=== PATIENT | female | born 1960 | race Caucasian/White ===

== ENCOUNTER 2019-03-22 14:38 | Emergency (ER) | payer OTHER ==
[2019-03-22 16:03] LABS: URINE BLOOD (Dip) POC 1+ (NEGATIVE); URINE GLUCOSE (Dip) POC Negative (NEGATIVE); URINE KETONES (Dip) POC Negative (NEGATIVE); URINE LEUKOCYTE EST (Dip) POC 2+ (NEGATIVE); URINE NITRITE (Dip) POC Positive (NEGATIVE); URINE TOTAL PROTEIN POC 2+ (NEGATIVE)
[2019-03-22 16:03] LABS: URINE PH (Dip) POC 6.5 (5.0-8.5)
[2019-03-22] MEDS: ACETAMINOPHEN 325 MG TAB PO (16:11)
[2019-03-22] MEDS: CEFTRIAXONE 1 GM INJ IM (16:25)
== END 2019-03-22 16:36 | disposition home or self-care (01) ==
LOC: FTE 16:36
DX: N30.90 Cystitis, unspecified without hematuria (principal)
CPT/HCPCS: 81003; 87086; 96372; 99284-25

== ENCOUNTER 2019-03-30 14:45 | Emergency (ER) | payer OTHER ==
[2019-03-30 16:00] LABS: ADD UMIC YES; UR ASCORBIC ACID NEGATIVE (NEGATIVE); UR BACTERIA FEW /HPF (NONE SEEN); UR BILIRUBIN (Dip) NEGATIVE (NEGATIVE); UR BLOOD (Dip) 1+ mg/dL (NEGATIVE); UR CLARITY CLOUDY (CLEAR); UR COLOR YELLOW (YELLOW); UR GLUCOSE (Dip) NEGATIVE (NEGATIVE); UR KETONES (Dip) NEGATIVE (NEGATIVE); UR LEUKOCYTE ESTERASE (Dip) 3+ Leu/ul (NEGATIVE); UR NITRITE (Dip) NEGATIVE (NEGATIVE); UR RBC 6 /HPF (0-5); UR SPECIFIC GRAVITY (Dip) 1.003 (1.003-1.030); UR TOTAL PROTEIN (Dip) NEGATIVE (NEGATIVE); UR UROBILINOGEN (Dip) NEGATIVE (NEGATIVE); UR WBC > 182 /HPF (0-5)
[2019-03-30] MEDS: LIDOCAINE 1% (MDV) 20 ML INJ SC (17:31)
[2019-03-30] MEDS: CEFTRIAXONE 1 GM INJ IM (17:31)
== END 2019-03-30 17:40 | disposition home or self-care (01) ==
LOC: FTE 14:45
DX: N39.0 Urinary tract infection, site not specified (principal)
CPT/HCPCS: 81001; 96372; 99284-25